=== PATIENT | male | born 1985 | race Caucasian/White ===

== ENCOUNTER 2017-11-11 15:20 | Emergency (ER) | payer MEDICAID ==
[~2017-11-11] VITALS: Ht 180.3 cm; Wt 99.8 kg
--- NOTE | 2017-11-11 15:40 | NUR ---
PT BIB FAMILY C/O SOB WITH MINIMALLY PRODUCTIVE COUGH X3 MONTHS THAT RESOLVED 3 DAYS AGO BUT NOW HAS RETURNED AND IS STOPPING HIM FROM SLEEPING. RESP APPEARS EVEN, UNLABORED. REPORTS MILD PAIN ON DEEP INSPIRATION AND COUGH. ABLE TO SPEAK FULL SENTENCES WITHOUT DIFFICULTY. NO DYSPNEA ON EXERTION. VSS. SKIN WARM DRY. IN ER BED 14.
[2017-11-11 15:48] LABS: BASOPHILS # (AUTO) 0.1 /CMM (0.0-0.2); BASOPHILS % (AUTO) 0.8 % (0.0-2.0); EOSINOPHILS % (AUTO) 8.3 % (0.0-6.0); HEMATOCRIT 51 % (39-51); HEMOGLOBIN 17.6 g/dL (13.5-17.5); LYMPHOCYTES % (AUTO) 24.2 % (20.0-44.0); MEAN CORPUSCULAR HGB CONC 35 g/dl (31.0-36.0); MEAN CORPUSCULAR VOLUME 84 fL (80-96); MONOCYTES # (AUTO) 0.6 /CMM (0.1-1.30); NEUTROPHILS # (AUTO) 5.1 /CMM (1.8-8.9); NEUTROPHILS % (AUTO) 59.7 % (43.0-81.0); PLATELET COUNT (AUTO) 203 /CMM (150-450); RDW COEFFICIENT OF VARIATION 12.3 (11.5-15.0); RED BLOOD CELL COUNT(AUTO) 5.99 MIL/uL (4.5-6.0); WHITE BLOOD COUNT (AUTO) 8.5 K/uL (4.3-11.0)
[2017-11-11 15:58] LABS: CALCIUM, SERUM 9.3 mg/dL (8.5-10.1); CARBON DIOXIDE 29 mmol/L (21-32); CHLORIDE 101 mmol/L (98-107); GLUCOSE 120 mg/dL (74-106); POTASSIUM 3.9 mmol/L (3.5-5.1); SODIUM SERUM 139 mmol/L (136-145); UREA NITROGEN, BLOOD 13 mg/dL (7-18)
[2017-11-11 16:02] LABS: INR 0.95 (0.85-1.15)
[2017-11-11 16:07] LABS: TROPONIN I < 0.017 ng/mL (0.00-0.056)
--- NOTE | 2017-11-11 17:35 | NUR ---
IV removed. Catheter intact and site benign. Pressure and 4x4 applied to site. No bleeding noted. Patient discharged to home in stable condition. Written and verbal after care instructions given. Patient verbalizes understanding of instruction.
[2017-11-11 17:47] VITALS: BP 124/80
== END 2017-11-11 17:49 | disposition home or self-care (01) ==
LOC: ER 15:22
DX: R06.02 Shortness of breath (principal); Z91.018 Allergy to other foods
CPT/HCPCS: 36415; 71045; 80048; 84484; 85025; 85730; 93005; 99285; A4606; Z7610

== ENCOUNTER 2018-11-08 06:47 | Emergency (ER) | payer OTHER ==
[~2018-11-08] VITALS: Ht 177.8 cm; Wt 99.8 kg
[2018-11-08 06:55] VITALS: BP 137/81
--- NOTE | 2018-11-08 06:55 | NUR ---
PT BIBSELF C/O PRODUCTIVE COUGH X2 MONTHS. +YELLOW SPUTUM, -FEVER -SORE THROAT, -EARACHE, -NASAL CONGESTION. PT AOX4. NAD NOTED. PT ON MONITOR IN BED 9. WILL CONTINUE TO MONITOR.
--- NOTE | 2018-11-08 07:08 | NUR ---
RT CALLED FOR BREATHING TREATMENT
[2018-11-08] MEDS ORDERED: ALBUTEROL FS 2.5 MG/3 ML VIAL.NEB ONE (07:13)
[2018-11-08] MEDS ORDERED: IPRATROPIUM NEB FS 0.5 MG/2.5 ML AMPUL.NEB ONE (07:13)
[2018-11-08] MEDS ORDERED: predniSONE 20 MG TABLET ONE (07:13)
--- NOTE | 2018-11-08 07:15 | NUR ---
RT AT BEDSIDE FOR BREATHING TREATMENT
--- NOTE | 2018-11-08 07:16 | NUR ---
Cortney pacheco in [facility] - 11/08/18 at 0717 by KALLI RT AT BEDSIDE FOR BREATHING TREATMENT
--- NOTE | 2018-11-08 07:17 | NUR ---
RECEIVED REPORT FROM KIMBERLY MARINELLI FOR FRANCO. PT IS AAOX4, NOT IN RESPIRATORY DISTRESS, PT IS ON BREATHING TREAMENT, WILL CONTINUE TO MONITOR.
--- NOTE | 2018-11-08 07:17 | NUR ---
REPORT GIVEN TO CORAL BOWEN RN FOR FRANCO
--- NOTE | 2018-11-08 07:22 | NUR ---
INSPECTOR WIRE ROPE AT BEDSIDE FOR XRAY.
[2018-11-08] MEDS ORDERED: IPRATROPIUM NEB FS 0.5 MG/2.5 ML AMPUL.NEB NEB ONE (07:30)
[2018-11-08] MEDS ORDERED: predniSONE 20 MG TABLET PO ONE (07:30)
[2018-11-08] MEDS ORDERED: ALBUTEROL FS 2.5 MG/3 ML VIAL.NEB NEB ONE (07:30)
--- NOTE | 2018-11-08 07:43 | NUR ---
BREATHING TREATMENT DONE, LUNG SOUND ASSESSED STILL WHEEZING HEARD BILATERALLY BUT PT STATES "FEELING MUCH BETTER".
--- NOTE | 2018-11-08 07:57 | NUR ---
DCPatient discharged to home in stable condition. Written and verbal after care instructions given. Patient verbalizes understanding of instruction.
== END 2018-11-08 08:00 | disposition home or self-care (01) ==
LOC: ER 06:47
DX: J40 Bronchitis, not specified as acute or chronic (principal); Z91.018 Allergy to other foods
CPT/HCPCS: 71045; 94640; 99283; J7512